=== PATIENT | male | born 1995 | race Two or more races ===

== ENCOUNTER 2023-01-23 11:29 | Emergency (ER) | payer MEDICAID, OTHER, SELFPAY ==
[2023-01-23 11:32] VITALS: BP 141/81; PULSE 50; RESP 19; TEMP 36.6; O2SAT 100; BMI 24.3
--- NOTE | 2023-01-23 11:37 | ED.EYEPROB ---
HPI - Eye Problem General Chief complaint: Eye Problems Stated complaint: L eye swelling Time Seen by Provider: 01/23/23 11:37 Source: patient Mode of arrival: ambulatory Limitations: no limitations History of Present Illness HPI Narrative: 27-year-old male presents to the emergency department with a stye to his left eye worsening tells me it is a little uncomfortable, in his or stabbing. This is never happened to him before. Denies painful vision, pain with eye movements, vision changes, fevers, chills, chest pain, shortness of breath, eye trauma, headache, dizziness. Related Data Previous Rx's Medication Instructions Recorded erythromycin 5 mg/gram (0.5 %) eye 1 appl ophthalmic (eye) DAILY #3.5 01/23/23 ointment grams Allergies Allergy/AdvReac Type Severity Reaction Status Date / Time No Known Allergies Allergy Verified 01/23/23 11:32 Review of Systems Review of Systems: Constitutional : No Weight loss, No Fever, No Chills, No Fatigue, No Malaise ENT/Mouth : No sore throat, No Rhinorrhea Eyes: No Eye Pain, + Swelling, No Redness Cardiovascular : No Chest Pain, No SOB, No Dyspnea on Exertion, No Orthopnea, No Edema, No Palpitations Respiratory : No Cough, No Sputum, No Wheezing Gastrointestinal : No Nausea, No Vomiting, No Diarrhea, No Constipation, No abdominal Pain, No Hematochezia, No Melena Genitourinary : No Dysuria, No Urinary Frequency, No Hematuria, Musculoskeletal : No joint pain, No Myalgias, No Joint Swelling Skin : No Skin Lesions, No rash Neuro : No Weakness, No Numbness, No Dizziness, No Headache Psych : No Anxiety/Panic, No Depression All other systems reviewed and are negative Yes all other systems are reviewed and are negative [facility] Past Medical History Attestation statement: The following information was validated with the patient. Source: old records reviewed and nursing notes reviewed Physical Exam Vital Signs: Vital Signs: Last Vital Signs Temp 98 F 01/23/23 11:32 Pulse 50 01/23/23 11:32 Resp 19 01/23/23 11:32 BP 141/81 H 01/23/23 11:32 Pulse Ox 100 01/23/23 11:32 O2 Del Method Room Air 01/23/23 11:32 BMI result Body Mass Index 24.3 vss Appearance: Alert.? Oriented X3.? No acute distress.? Head: Normocephalic, atraumatic, no step-offs or deformities Eyes: Pupils equal, round and reactive to light.? + there is a stye noted to the left upper eyelid. With some overlying erythema, warmth. No palpable abscess. Left-sided conjunctiva slightly injected. No pain with extraocular movements. Neck: Normal inspection.? Neck supple.? CVS: Normal heart rate and rhythm.? Pulses normal.? Respiratory: No respiratory distress.? Breath sounds normal.? Abdomen: Soft and nontender.? Skin: Skin warm and dry.? Normal skin color.? Normal skin turgor.? Extremities: No lower extremity edema.? No calf ttp. 5/5 strength to bilateral upper and lower extremities Neuro: Oriented X 3.? No motor deficit.? No sensory deficit. CN 2-12 intact Course Reevaluation(s) Reevaluation #1: Patient to be discharged home 1, will have him follow-up with ophthalmology if needed. Educated patient on diagnosis and treatment plan, answered all question, patient verbalizes understanding. At this time patient will be discharged home, advised to return with new or worsening symptoms. Educated on worrisome signs and symptoms and when to return. At this time I feel comfortable discharge home. Time: 11:40 Medical Decision Making Medical Decision Making [facility] Narrative: 1130 27-year-old male presents with tidal left eye worsening of the past few days. Physical exam significant for Pupils equal, round and reactive to light.? + there is a stye noted to the left upper eyelid. With some overlying erythema, warmth. No palpable abscess. Left-sided conjunctiva slightly injected. No pain with extraocular movements. Likely hordeola versus shoe lace and. Other differentials include blepharitis. Unlikely that this is orbital cellulitis, periorbital cellulitis, wet macular degeneration or acute closed angle glaucoma. I do not suspect foreign body or corneal abrasion or ulcer. Unlikely globe rupture Plan will discharge patient from the waiting room will send erythromycin for left eye. Also advised him to apply warm compresses/tea bags. Differential Diagnosis Differential Diagnoses: The differential diagnosis associated with the presentation includes Likely hordeola versus shoe lace and. Other differentials include blepharitis. Unlikely that this is orbital cellulitis, periorbital cellulitis, wet macular degeneration or acute closed angle glaucoma. I do not suspect foreign body or corneal abrasion or ulcer. Unlikely globe rupture Discharge Plan Discharge Clinical Impression: Hordeolum Patient Disposition: Home, Self-Care Instructions: [facility] (ED) Additional Instructions: Take your medications as prescribed. If you were prescribed antibiotics today, it is important that you take your medication to their entirety, do not skip any doses, do not finish them early. Follow-up with your primary care provider this week. Follow-up with eye doctor if this does not improve in a few days Return to the emergency department with new or worsening symptoms. Such as fevers, chills, chest pain, shortness of breath, nausea, vomiting, dizziness, headache, vision changes, lethargy In case of emergency call 911 [place] haley medicamentos seg?n lo prescrito. Si le recetaron antibi?ticos hoy, es importante que tome marie medicamento en marie totalidad, no se salte ninguna dosis, no los termine antes de tiempo. Seguimiento con marie proveedor de atenci?n primaria esta semana. Seguimiento con un oftalm?logo si esto no mejora en unos d?as. Regrese al departamento de emergencias con s?ntomas nuevos o que empeoran. Hayde fiebre, escalofr?os, dolor de pecho, dificultad para respirar, n?useas, v?mitos, mareos, dolor de colt, cambios en la visi?n, letargo En mirella de emergencia llama al 911 Prescriptions: New erythromycin 5 mg/gram (0.5 %) ointment 1 appl ophthalmic (eye) DAILY Qty: 3.5 0RF Referrals: Bg [facility] [Physician] - 3 days Stand Alone Forms: Work/School Release
== END 2023-01-23 11:49 | disposition home or self-care (01) ==
PROVIDERS: Emergency Provider Emergency Medicine
DX: H00.014 Hordeolum externum left upper eyelid (principal)
CPT/HCPCS: 99282; 99283